=== PATIENT | male | born 1990 | race Two or more races ===

== ENCOUNTER 2017-12-15 19:17 | Emergency (ER) | END 2017-12-15 23:15 | disposition home or self-care (01) ==

== ENCOUNTER 2018-04-12 21:51 | Emergency (ER) | payer OTHER ==
[~2018-04-12] VITALS: Ht 167.6 cm; Wt 77.8 kg
[~2018-04-12 21:51] MED LIST: IBUP-1542 PO
[2018-04-12 21:53] VITALS: Ht 167.6 cm; Wt 77.8 kg
[2018-04-13] MEDS ORDERED: morphine 4 MG/ML VIAL IV STA (01:02)
[2018-04-13] MEDS ORDERED: ONDANSETRON 4 MG INJ IV STA (01:02)
[2018-04-13] MEDS ORDERED: SOD CHLORIDE 0.9% 1,000 ML IV STA (01:02)
--- NOTE | 2018-04-13 01:07 | ERD ---
ER Documentation Chief Complaint Chief Complaint right abdominal pain since yesterday HPI 27-year-old male presents here in emergency department for complaints of right lower quadrant abdominal pain that started yesterday, describes the pain as sharp pain, 6/10 scale, not better or worse with anything, denies any nausea vomiting diarrhea or constipation. Patient denies any fever or chills. Patient denies any flank pain ROS All systems reviewed and are negative except as per history of present illness. Medications Home Meds Active Scripts Ibuprofen* (Motrin*) 600 Mg Tab, 600 MG PO Q6H PRN for PAIN AND OR ELEVATED TEMP, #30 TAB Prov:SKYLA CRUZ Rosamaria [employer] CASE MANAGER 12/15/17 Allergies Allergies: Coded Allergies: No Known Allergy (Unverified , 04/12/18) PMhx/Soc Medical and Surgical Hx: pt denies Medical Hx, pt denies Surgical Hx History of Surgery: No Anesthesia Reaction: No Hx Neurological Disorder: No Hx Respiratory Disorders: No Hx Cardiac Disorders: No Hx Psychiatric Problems: No Hx Miscellaneous Medical Probl: No Hx Alcohol Use: No Hx Substance Use: No Hx Tobacco Use: No Smoking Status: Never smoker FmHx Family History: No diabetes, No coronary disease, No other Physical Exam Vitals Vital Signs Date Temp Pulse Resp B/P (MAP) Pulse Ox O2 O2 Flow FiO2 Time Delivery Rate 04/12/18 97.2 77 18 156/89 97 21:53 (111) Physical Exam GENERAL: The patient is well developed and appropriate for usual state of health, in no apparent distress. CHEST: Clear to auscultation bilaterally. There are no rales, wheezes or rhonchi. HEART: Regular rate and rhythm. No murmurs, clicks, rubs or gallops. No S3 or S4. ABDOMEN: Soft, noted right lower quadrant tenderness.. Good bowel sounds. No rebound or guarding. No gross peritonitis. No gross organomegaly or masses. No Hutchinson sign or McBurney point tenderness. BACK: No midline or flank tenderness. EXTREMITIES: Equal pulses bilaterally. There is no peripheral clubbing, cyanosis or edema. No focal swelling or erythema. Full range of motion. Grossly neurovascularly intact. NEURO: Alert and oriented. Cranial nerves 2-12 intact. Motor strength in all 4 extremities with 5/5 strength. Sensation grossly intact. Normal speech and gait. SKIN: There is no apparent rash or petechia. The skin is warm and dry. HEMATOLOGIC AND LYMPHATIC: There is no evidence of excessive bruising or lymphedema. No gross cervical, axillary, or inguinal lymphadenopathy. Result Diagram: 04/13/186 04/13/18 0116 Results 24 hrs Laboratory Tests Test 04/13/18 01:16 White Blood Count 7.0 10^3/ul Red Blood Count 5.39 10^6/ul Hemoglobin 15.8 g/dl Hematocrit 46.1 % Mean Corpuscular Volume 85.5 fl Mean Corpuscular Hemoglobin 29.3 pg Mean Corpuscular Hemoglobin Concent 34.3 g/dl Red Cell Distribution Width 11.8 % Platelet Count 279 10^3/UL Mean Platelet Volume 10.0 fl Immature Granulocytes % 0.300 % Neutrophils % 58.8 % Lymphocytes % 29.5 % Monocytes % 8.5 % Eosinophils % 2.6 % Basophils % 0.3 % Nucleated Red Blood Cells % 0.0 /100WBC Immature Granulocytes # 0.020 10^3/ul Neutrophils # 4.1 10^3/ul Lymphocytes # 2.1 10^3/ul Monocytes # 0.6 10^3/ul Eosinophils # 0.2 10^3/ul Basophils # 0.0 10^3/ul Nucleated Red Blood Cells # 0.0 10^3/ul Urine Color YELLOW Urine Clarity CLEAR Urine pH 6.0 Urine Specific [place] 1.011 Urine Ketones NEGATIVE mg/dL Urine Nitrite NEGATIVE mg/dL Urine Bilirubin NEGATIVE mg/dL Urine Urobilinogen NEGATIVE mg/dL Urine Leukocyte Esterase NEGATIVE More/ul Urine Hemoglobin NEGATIVE mg/dL Urine Glucose NEGATIVE mg/dL Urine Total Protein NEGATIVE mg/dl Sodium Level 140 mmol/L Potassium Level 4.1 mmol/L Chloride Level 100 mmol/L Carbon Dioxide Level 28 mmol/L Anion Gap 12 Blood Urea Nitrogen 14 mg/dl Creatinine 0.76 mg/dl Est Glomerular Filtrat Rate mL/min > 60 mL/min Glucose Level 102 mg/dl Calcium Level 9.9 mg/dl Total Bilirubin 0.5 mg/dl Direct Bilirubin 0.00 mg/dl Indirect Bilirubin 0.5 mg/dl Aspartate Amino Transf (AST/SGOT) 28 IU/L Alanine Aminotransferase (ALT/SGPT) 37 IU/L Alkaline Phosphatase 109 IU/L Total Protein 8.2 g/dl Albumin 4.9 g/dl Globulin 3.30 g/dl Albumin/Globulin Ratio 1.48 Lipase 84 U/L Current Medications Medications Dose Sig/Laureen Start Time Status Last (Trade) Ordered Route PRN Stop Time Admin Dose Reason Admin Sodium 1,000 ml @ Q1H STAT 04/13/18 DC 04/13/18 Chloride 1,000 mls/hr IV 01:02 01:31 04/13/18 02:01 Morphine 4 mg ONCE STAT 04/13/18 DC 04/13/18 Sulfate IV 01:02 01:21 (morphine) 04/13/18 01:03 Ondansetron 4 mg ONCE STAT 04/13/18 DC 04/13/18 HCl (Zofran IV 01:02 01:21 Inj) 04/13/18 01:03 Patient was given medication for pain here in emergency department, after treatment, patient verbalized feeling much better. Patient's pain is improved. Patient was given Zofran here in the emergency department. After treatment, patient was able to tolerate po fluids here in the emergency department without any vomiting. There is no signs and symptoms of dehydration. Normal saline IV bolus was given here in emergency department for rehydration, patient tolerated IV fluids. PROCEDURE: CT Abdomen and pelvis without contrast. CLINICAL INDICATION: Abdominal pain. TECHNIQUE: CT scan of the abdomen and pelvis was performed on a multi- detector high-resolution CT scanner. Contiguous axial images were obtained from the lung bases to the ischial tuberosities without intravenous contrast. Coronal and sagittal reformatted images were also obtained. Images were reviewed on the PACS workstation. DICOM images are available. One or more of the following dose reduction techniques were used: - Automated exposure control. - Adjustment of the mA and/or kV according to patient size. - Use of iterative reconstruction technique. Exam CTD/vol = 12.32 mGy. Total exam DLP = 707.78 mGy-cm. COMPARISON: None. FINDINGS: Evaluation of the lung bases demonstrates no pleural or parenchymal disease. Abdomen: The liver is normal in size. There is no focal mass or dilatation of the biliary tree. The gallbladder is not distended. The spleen, pancreas and bilateral adrenal glands are within normal limits. Bilateral kidneys are normal in size with no contour deforming mass identified. There is no radiopaque renal or ureteral calculus identified. There is no hydronephrosis or hydroureter. There is no retroperitoneal adenopathy. The abdominal aorta is of normal caliber. There is no abnormal bowel wall thickening or distension. There is no bowel obstruction or free air. A normal appendix is identified. There is no diverticulosis or diverticulitis. There is no ascites. Pelvis: The bladder is unremarkable. The prostate and seminal vesicles are within normal limits. There is no significant pelvic adenopathy or free fluid. Evaluation of the osseous structures demonstrates no suspicious lytic or blastic lesion. IMPRESSION: No acute abnormality identified within the abdomen and pelvis. .Candelario Jasso MD, MD Date Time Electronically viewed and signed by .Candelario Jasso MD, MD on 04/13/2018 02:42 .T/ CC: WENDI SWAIN TRANSPLANT CASE MANAGER Procedures/MDM Medical Decision Making: Patient is abdominal pain nonspecific, possible muscle strain, possible viral. No appendicitis, no perforation. No renal stone. There is low suspicion for abdominal emergencies at this time. Patients abdominal exam is normal at this time. Patients radiology exam does not show any abdominal emergencies at this time. There is low suspicion for appendicitis, cholecystitis, abdominal aortic aneurysms or peritonitis at this time. There is low suspicion for sepsis. Patient appears well and is hemodynamically stable. Disposition: Home. Condition: Stable Prescription ibuprofen, Brag[place], Zofran Instructions: Patient is advised to take medications as prescribed. Patient is advised to rest, increase fluid intake and do brat diet for next 1-2 days and progress as tolerated. Patient is advised that if symptoms are worse, severe abdominal pain, uncontrolled vomiting, high fever, severe flank pain, worst signs and symptoms, to return to the emergency department immediately. Otherwise, patient can follow up with primary care doctor in 5-7 days. Disclaimer: Inadvertent spelling and grammatical errors are likely due to EHR/dictation software use and do not reflect on the overall quality of patient care. Also, please note that the electronic time recorded on this note does not necessarily reflect the actual time of the patient encounter. Departure Diagnosis: Primary Impression: Abdominal pain Abdominal location: right lower quadrant Qualified Codes: R10.31 - Right lower quadrant pain Condition: Stable Patient Instructions: Abdominal Pain Additional Instructions: Patient is advised to take medications as prescribed. Patient is advised to rest, increase fluid intake and do brat diet for next 1-2 days and progress as tolerated. Patient is advised that if symptoms are worse, severe abdominal pain, uncontrolled vomiting, high fever, severe flank pain, worst signs and symptoms, to return to the emergency department immediately. Otherwise, patient can follow up with primary care doctor in 5-7 days. WENDI SWAIN NP Apr 13, 2018 01:07
[2018-04-13] MEDS ORDERED: ONDA4TAB14 PO (02:55)
[2018-04-13] MEDS ORDERED: HYDR-4011 PO (02:55)
[2018-04-13] MEDS ORDERED: IBUP-1542 PO (02:55)
[2018-04-13 03:38] VITALS: BP 144/85; PULSE 80; RESP 18
== END 2018-04-13 03:41 | disposition home or self-care (01) ==
LOC: FTE 21:51
DX: R10.31 Right lower quadrant pain (principal)
CPT/HCPCS: 74176; 80053; 81003; 83690; 85025; J2270; J2405; J7030; 36415; 96361; 96374; 96375

== ENCOUNTER 2018-06-02 20:00 | Emergency (ER) | payer OTHER ==
[~2018-06-02] VITALS: Ht 170.2 cm; Wt 73.9 kg
[~2018-06-02 20:00] MED LIST changes: +HYDR-4011 PO; +ONDA4TAB14 PO
[2018-06-02 20:25] VITALS: Ht 170.2 cm; Wt 73.9 kg
[2018-06-02] MEDS ORDERED: KETOROLAC 15 MG INJ IV STA (22:07)
[2018-06-02] MEDS ORDERED: SODIUM CHLORIDE 0.9% 1L BAG IV* STA (22:07)
[2018-06-02] MEDS ORDERED: ACETAMINOPHEN 325 MG TAB PO ONE (22:30)
--- NOTE | 2018-06-03 00:14 | ERD ---
ER Documentation Chief Complaint Chief Complaint "tingling" on head, KAMARA, neck pain, back pain X 4 days HPI This is a 28-year-old male with no significant past medical history who presents with flulike symptoms. The patient is felt generally unwell over the last 4 days. He reports myalgias, headache, mild neck pain without stiffness, feeling warm with occasional episodes of diaphoresis, photophobia, nausea without vomiting, and chills with paresthesias to his head, hands and feet. The patient was reportedly evaluated at an urgent care today and told that he should come to the emergency department to rule out meningitis. The patient was febrile at the urgent care and was given Tylenol. The patient is able to move his neck in all directions without significant issues. The patient is not confused. ROS All systems reviewed and are negative except as per history of present illness. Medications Home Meds Active Scripts Ibuprofen* (Motrin*) 600 Mg Tab, 600 MG PO Q6H PRN for PAIN AND OR ELEVATED TEMP, #30 TAB Prov:HEAVENLY PEDRO MD 06/03/18 Ondansetron (Ondansetron Odt) 4 Mg Tab.rapdis, 4 MG PO Q6H PRN for NAUSEA AND/OR VOMITING, #20 TAB Prov:WENDI SWAIN CUT TOBACCO BULKER 04/13/18 Hydrocodone/Acetaminophen ([place] 5-325 Tablet) 1 Each Tablet, 1 TAB PO Q6H PRN for SEVERE PAIN LEVEL 7-10, #7 TAB Prov:WENDI SWAIN NP 04/13/18 Ibuprofen* (Motrin*) 600 Mg Tab, 600 MG PO Q6H PRN for PAIN AND OR ELEVATED TEMP, #30 TAB Prov:WENDI SWAIN NP 04/13/18 Ibuprofen* (Motrin*) 600 Mg Tab, 600 MG PO Q6H PRN for PAIN AND OR ELEVATED TEMP, #30 TAB Prov:SKYLA CRUZ NP 12/15/17 Allergies Allergies: Coded Allergies: Sulfa (Sulfonamide Antibiotics) (Verified Allergy, Unknown, 06/02/18) PMhx/Soc Medical and Surgical Hx: pt denies Surgical Hx History of Surgery: No Anesthesia Reaction: No Hx Neurological Disorder: No Hx Respiratory Disorders: No Hx Cardiac Disorders: No Hx Psychiatric Problems: No Hx Miscellaneous Medical Probl: No Hx Alcohol Use: No Hx Substance Use: No Hx Tobacco Use: No Smoking Status: Never smoker FmHx Family History: No diabetes Physical Exam Vitals Vital Signs Date Temp Pulse Resp B/P (MAP) Pulse Ox O2 O2 Flow FiO2 Time Delivery Rate 06/03/18 98.3 75 17 129/89 100 Room Air 00:43 (102) 06/02/18 99.1 85 18 178/102 100 20:25 (127) Physical Exam Const: No apparent distress, well-developed, well-nourished Head: Normocephalic, Atraumatic Eyes: Normal Conjunctiva. Extraocular movements intact. Pupils equal, round and reactive to light ENT: Normal External Ears, Nose and Mouth. Neck: Full range of motion. No meningismus. Negative Brudzinski and Kernig signs. Resp: Clear to auscultation bilaterally, No wheezes, rales or rhonchi Cardio: Regular rate and rhythm. No murmurs, rubs or gallops Abd: Soft, non tender, non distended. Normal bowel sounds Skin: No petechiae or rashes Back: No midline tenderness. No CVA tenderness Ext: No cyanosis, or edema Neur: Awake and alert, oriented 4. Cranial nerves intact. No facial droop. Normal strength, sensation and coordination. Psych: Odd affect Result Diagram: 06/02/18222806/02/182228 Results 24 hrs Laboratory Tests Test 06/02/18 22:29 White Blood Count 7.8 10^3/ul Red Blood Count 5.12 10^6/ul Hemoglobin 15.3 g/dl Hematocrit 43.3 % Mean Corpuscular Volume 84.6 fl Mean Corpuscular Hemoglobin 29.9 pg Mean Corpuscular Hemoglobin Concent 35.3 g/dl Red Cell Distribution Width 12.0 % Platelet Count 257 10^3/UL Mean Platelet Volume 10.7 fl Immature Granulocytes % 0.400 % Neutrophils % 76.2 % Lymphocytes % 15.1 % Monocytes % 7.5 % Eosinophils % 0.4 % Basophils % 0.4 % Nucleated Red Blood Cells % 0.0 /100WBC Immature Granulocytes # 0.030 10^3/ul Neutrophils # 5.9 10^3/ul Lymphocytes # 1.2 10^3/ul Monocytes # 0.6 10^3/ul Eosinophils # 0.0 10^3/ul Basophils # 0.0 10^3/ul Nucleated Red Blood Cells # 0.0 10^3/ul Urine Color STRAW Urine Clarity CLEAR Urine pH 6.0 Urine Specific [place] 1.005 Urine Ketones TRACE mg/dL Urine Nitrite NEGATIVE mg/dL Urine Bilirubin NEGATIVE mg/dL Urine Urobilinogen NEGATIVE mg/dL Urine Leukocyte Esterase NEGATIVE More/ul Urine Hemoglobin NEGATIVE mg/dL Urine Glucose NEGATIVE mg/dL Urine Total Protein NEGATIVE mg/dl Sodium Level 141 mmol/L Potassium Level 3.3 mmol/L Chloride Level 104 mmol/L Carbon Dioxide Level 25 mmol/L Anion Gap 12 Blood Urea Nitrogen 10 mg/dl Creatinine 0.86 mg/dl Est Glomerular Filtrat Rate mL/min > 60 mL/min Glucose Level 112 mg/dl Lactic Acid Level 1.3 mmol/L Calcium Level 9.8 mg/dl Total Bilirubin 0.4 mg/dl Direct Bilirubin 0.00 mg/dl Indirect Bilirubin 0.4 mg/dl Aspartate Amino Transf (AST/SGOT) 34 IU/L Alanine Aminotransferase (ALT/SGPT) 58 IU/L Alkaline Phosphatase 129 IU/L Total Protein 8.0 g/dl Albumin 4.9 g/dl Globulin 3.10 g/dl Albumin/Globulin Ratio 1.58 Current Medications Medications Dose Sig/Laureen Start Time Status Last (Trade) Ordered Route PRN Stop Time Admin Dose Reason Admin Sodium 2,220 ml BOLUS OVER 2 06/02/18 DC 06/02/18 Chloride HOURS STAT 22:07 06/02/18 22:25 (NS) IV* 22:09 Ketorolac 15 mg ONCE STAT 06/02/18 DC 06/02/18 Tromethamine IV 22:07 06/02/18 22:24 (Toradol) 22:09 650 mg ONCE ONCE 06/02/18 DC 06/02/18 Acetaminophen PO 22:30 06/02/18 22:25 (Tylenol 22:31 Tab) Procedures/MDM MDM The patient's presentation warrants further investigation. Previous medical records, if available, were reviewed. LABS The patient's laboratory testing was obtained and reviewed. No emergent treatment was required unless described below. CBC: No E/o systemic infection or severe anemia or thrombocytopenia Chemistry: No E/o severe acidosis or alkalosis or renal failure or liver disea se or diabetic ketoacidosis. Mild hypokalemia, nonemergent Lactate: No E/o severe sepsis Urine: No E/o acute infection or hematuria Influenza: Negative EKG EKG read by me: Rate/Rhythm: Regular rate and rhythm at a rate of 81 bpm with a sinus arrhythmia Intervals: Normal [place]: Normal Impression: No evidence of acute ischemia. Sinus arrhythmia IMAGING Imaging and Radiology interpretation reviewed. CXR FINDINGS: The heart and mediastinum are within normal limits. The lungs are clear. There is no pleural effusion or pneumothorax. IMPRESSION: No acute disease Electronically viewed and signed by .Jose Diaz MD, on 06/02/2018 22:53 TREATMENT/DISPOSITION The patient symptoms are consistent with a viral syndrome. The patient was treated with IV fluids, Toradol and Tylenol with almost complete resolution of his symptoms. The patient's symptoms are not consistent with meningitis. I do not feel the patient requires a lumbar puncture or other diagnostic studies for this etiology at this time. The patient does not have the flu. I do not feel that he would benefit from Tamiflu therapy. An upper respiratory infection is certainly a possibility. I do not see evidence of pneumonia. I have low suspicion for soft tissue infection. The patient does not have evidence of otitis media or pharyngitis. I have low suspicion for a bacterial infection. I do not feel the patient would benefit from antibiotics at this time. Differential diagnosis for a headache includes a febrile illness, migraine, tension headache, cluster headache. The patient has no focal deficits. The neurologic exam is reassuring. I have decreased suspicion for cerebral ischemia. There was no trauma or injury. There is no personal or family history of cerebral aneurysm. This is not the worst headache of the patient's life. It was not acutely severe. It is been progressive in nature. I have decreased suspicion for SAH or other ICH. I have low suspicion for temporal arteritis, cavernous venous thrombosis, subdural hematoma, epidural hematoma, meningitis. I do not feel that advanced imaging studies are warranted at this time. Upon reevaluation of the patient, symptoms have improved. No emergent diagnoses were identified. At this time, I feel that the patient stable for discharge. The patient was instructed to follow-up with a primary care physician in 1-3 days. The patient will be given strict precautions with which to return to the emergency department. Prescriptions: Ibuprofen The patient's blood pressure was elevated at greater than 120/80 while in the emergency department. The patient was otherwise stable with no evidence of hypertensive urgency or emergency. The patient does not require admission for blood pressure control. I have discussed with the patient the risks of hypertension. I have instructed the patient to return to the ER for any new or worsening symptoms including chest pain, shortness of breath, headache, blurred vision, confusion, nausea, vomiting or LOC. I have advised the patient to follow up with the primary care physician for outpatient monitoring and treatment for hypertension in 1-3 days. Disclaimer: Inadvertent spelling and grammatical errors are likely due to EHR/dictation software use and do not reflect on the overall quality of patient care. Note that the electronic time recorded on this note does not necessarily reflect the actual time of the patient encounter. Departure Diagnosis: Primary Impression: Viral syndrome Additional Impressions: Fever Fever type: unspecified Qualified Codes: R50.9 - Fever, unspecified Headache Headache type: unspecified Headache chronicity pattern: acute headache Intractability: not intractable Qualified Codes: R51 - Headache Paresthesias Hypokalemia Condition: Stable HEAVENLY PEDRO MD Jun 03, 2018 00:14
[2018-06-03] MEDS ORDERED: IBUP-1542 PO (00:16)
[2018-06-03 00:43] VITALS: BP 129/89; PULSE 75; RESP 17
== END 2018-06-03 00:51 | disposition home or self-care (01) ==
LOC: E/R 20:00
DX: B34.9 Viral infection, unspecified (principal); E87.6 Hypokalemia; R40.2142 Coma scale, eyes open, spontaneous, at arrival to emergency department; R40.2252 Coma scale, best verbal response, oriented, at arrival to emergency department; R40.2362 Coma scale, best motor response, obeys commands, at arrival to emergency department; R42 Dizziness and giddiness
CPT/HCPCS: 36415; 71045; 80053; 81003; 83605; 85025; 87040; 87086; 87400; 93005; 96374; 99285; J1885; J7030

== ENCOUNTER 2018-07-05 19:22 | Emergency (ER) | payer SELFPAY ==
[~2018-07-05] VITALS: Ht 167.6 cm; Wt 76.0 kg
[2018-07-05 19:26] VITALS: Ht 167.6 cm; Wt 76.0 kg
[2018-07-05] MEDS ORDERED: ACET-141 PO (22:34)
[2018-07-05] MEDS ORDERED: IBUP-1542 PO (22:34)
[2018-07-05] MEDS ORDERED: METH750T93 PO (22:35)
--- NOTE | 2018-07-05 22:38 | ERD ---
ER Documentation Chief Complaint Chief Complaint low back pain x 1 month. denies trauma HPI 28-year-old male presents for upper back pain and left-sided back pain times 1 month. He states he has been taking low-dose ibuprofen at home without relief. He states that he has 6 out of 10 pain intermittently. The pain is noted to be sharp. He states it is worse with movement. No other treatments tried at home. Denies history of cancer, denies recent infection, denies any recent back procedures. ROS All systems reviewed and are negative except as per history of present illness. Medications Home Meds Active Scripts Methocarbamol* (Robaxin*) 750 Mg Tablet, 750 MG PO TID PRN for MUSCLE SPASMS, #30 TAB Prov:ESTRELLITA BAEZA DO 07/05/18 Acetaminophen* (Acetaminophen*) 500 MG Extra Strength Tablet, 500 MG PO Q4H PRN for PAIN AND OR ELEVATED TEMP, #30 TAB Prov:ESTRELLITA BAEZA DO 07/05/18 Ibuprofen* (Motrin*) 600 Mg Tab, 600 MG PO Q6H PRN for PAIN AND OR ELEVATED TEMP, #30 TAB Prov:ESTRELLITA BAEZA DO 07/05/18 Ibuprofen* (Motrin*) 600 Mg Tab, 600 MG PO Q6H PRN for PAIN AND OR ELEVATED TEMP, #30 TAB Prov:HEAVENLY PEDRO MD 06/03/18 Ondansetron (Ondansetron Odt) 4 Mg Tab.rapdis, 4 MG PO Q6H PRN for NAUSEA AND/OR VOMITING, #20 TAB Prov:WENDI SWAIN NP 04/13/18 Hydrocodone/Acetaminophen ([place] 5-325 Tablet) 1 Each Tablet, 1 TAB PO Q6H PRN for SEVERE PAIN LEVEL 7-10, #7 TAB Prov:WENDI SWAIN NP 04/13/18 Ibuprofen* (Motrin*) 600 Mg Tab, 600 MG PO Q6H PRN for PAIN AND OR ELEVATED TEMP, #30 TAB Prov:WENDI SWAIN NP 04/13/18 Ibuprofen* (Motrin*) 600 Mg Tab, 600 MG PO Q6H PRN for PAIN AND OR ELEVATED TEMP, #30 TAB Prov:SKYLA CRUZ NP 12/15/17 Allergies Allergies: Coded Allergies: Sulfa (Sulfonamide Antibiotics) (Verified Allergy, Unknown, 06/02/18) PMhx/Soc History of Surgery: No Anesthesia Reaction: No Hx Neurological Disorder: No Hx Respiratory Disorders: No Hx Cardiac Disorders: No Hx Psychiatric Problems: No Hx Miscellaneous Medical Probl: No Hx Alcohol Use: No Hx Substance Use: No Hx Tobacco Use: No Physical Exam Vitals Vital Signs Date Temp Pulse Resp B/P (MAP) Pulse Ox O2 O2 Flow FiO2 Time Delivery Rate 07/05/18 98.2 76 18 149/84 100 19:26 (105) Physical Exam Const: No acute distress Neck: Full range of motion. No meningismus. no midline tenderness Resp: Clear to auscultation bilaterally Cardio: Regular rate and rhythm, no murmurs, bilateral radial and dorsalis pedis pulses intact and equal Abd: Soft, non tender, non distended. Normal bowel sounds, no abdominal bruit noted Skin: No petechiae or rashes Back: no point tenderness, there is bilateral paravertebral muscle tenderness palpation in the upper thoracic area Ext: No cyanosis, or edema, 5/5 muscle strength bilateral upper and lower extremities Neur: Awake and alert, bilateral upper and lower extremity sensation intact Psych: Normal Mood and Affect Procedures/MDM Medical Decision Making: Differential diagnosis includes but not limited to muscle strain, ligamentous sprain, epidural abscess, osteomyelitis, osteoarthritis, herniated disc, compression fracture, aortic aneurysm, kidney stone, pyelonephritis, pancreatitis. Patient appeared well on physical examination. Nontoxic appearing. Patient was neurovascularly intact. No recent back procedure, therefore low suspicion for epidural abscess No recent infection, therefore low suspicion for osteomyelitis No trauma, therefore low suspicion for fracture No chest pain, abdominal pain and no pulse deficits noted, therefore low suspicion for aortic dissection or pancreatitis No flank pain or fever to suggest pyelonephritis or kidney stone Patient likely has muscle strain Prescription(s): Patient given prescription for supportive medication(s). Patient advised to follow up with PCP in 1-2 days. Patient advised to return to ED for new or worsening symptoms. Patient stable on discharge from the ED. Disclaimer: Inadvertent spelling and grammatical errors are likely due to EHR/dictation software use and do not reflect on the overall quality of patient care. Also, please note that the electronic time recorded on this note does not necessarily reflect the actual time of the patient encounter. Departure Diagnosis: Primary Impression: Back pain Back pain location: thoracic back pain Chronicity: unspecified Back pain laterality: unspecified Qualified Codes: M54.6 - Pain in thoracic spine Condition: Fair Patient Instructions: Back Pain (Acute Or Chronic) Referrals: [facility] YOU HAVE RECEIVED A MEDICAL SCREENING EXAM AND THE RESULTS INDICATE THAT YOU DO NOT HAVE A CONDITION THAT REQUIRES URGENT TREATMENT IN THE EMERGENCY DEPARTMENT. FURTHER EVALUATION AND TREATMENT OF YOUR CONDITION CAN WAIT UNTIL YOU ARE SEEN IN YOUR DOCTORS OFFICE WITHIN THE NEXT 1-2 DAYS. IT IS YOUR RESPONSIBILITY TO MAKE AN APPOINTMENT FOR FOLOW-UP CARE. IF YOU HAVE A PRIMARY DOCTOR --you should call your primary doctor and schedule an appointment IF YOU DO NOT HAVE A PRIMARY DOCTOR YOU CAN CALL OUR PHYSICIAN REFERRAL HOTLINE AT IF YOU CAN NOT AFFORD TO SEE A PHYSICIAN YOU CAN CHOSE FROM THE FOLLOWING [facility] [address] [facility] [facility] [address] [facility] [facility] [address] [facility] [address] [facility] [facility] [address] [facility]. [facility]. [address] Additional Instructions: Call your primary care doctor TOMORROW for an appointment during the next 1-2 days.See the doctor sooner or return here if your condition worsens before your appointment time. ESTRELLITA BAEZA DO Jul 05, 2018 22:38
[2018-07-05 22:43] VITALS: BP 157/97; PULSE 65; RESP 18
== END 2018-07-05 22:45 | disposition home or self-care (01) ==
LOC: FTE 19:22
DX: M54.6 Pain in thoracic spine (principal)
CPT/HCPCS: 99283